=== PATIENT | male | born 1995 | race Caucasian/White ===

== ENCOUNTER 2019-06-18 17:12 | Emergency (ER) | payer BC, MEDICAID, SELFPAY ==
[~2019-06-18] VITALS: Ht 182.9 cm; Wt 86.3 kg
[2019-06-18 17:26] VITALS: BP 136/93
[2019-06-18 17:40] LABS: BASOPHILS % (AUTO) 0.3 % (0-1); EOSINOPHILS % (AUTO) 0.2 % (0-6); HEMATOCRIT 48.9 % (42.0-52.0); HEMOGLOBIN 16.6 g/dl (14.0-17.9); LYMPHOCYTES % (AUTO) 18.8 % (21-51); MEAN CORPUSCULAR HEMOGLOBIN 29.8 PG (27.0-31.0); MEAN CORPUSCULAR HGB CONC 33.8 g/dL (33.0-36.5); MEAN PLATELET VOLUME 6.4 FL (7.4-10.4); MONOCYTES # (AUTO) 0.8 X10'3 (0-0.9); MONOCYTES % (AUTO) 7.7 % (2-12); NEUTROPHILS # (AUTO) 7.7 X10'3 (1.8-7.7); PLATELET COUNT 287 X10'3 (140-440); RED BLOOD COUNT 5.56 X10'6 (4.70-6.10); RED CELL DISTRIBUTION WIDTH 13.6 % (11.5-14.5); WHITE BLOOD COUNT 10.5 X10'3 (4.5-11.0)
[2019-06-18 17:55] LABS: ALANINE AMINOTRANSFERASE 37 U/L (12-78); ALBUMIN 4.3 G/DL (3.4-5.0); ALBUMIN/GLOBULIN RATIO 1.2 (1.1-1.5); ALKALINE PHOSPHATASE 55 IU/L (46-116); ANION GAP 10 (8-16); ASPARTATE AMINO TRANSFERASE 24 U/L (10-37); BILIRUBIN,TOTAL 1.4 MG/DL (0.1-1.0); BLOOD UREA NITROGEN 14 MG/DL (7-18); CALCIUM 9.1 MG/DL (8.5-10.1); CHLORIDE 104 MMOL/L (99-107); CREATININE 1.55 MG/DL (0.60-1.10); GLUCOSE 104 MG/DL (70-104); SODIUM 143 MMOL/L (135-145); TOTAL CARBON DIOXIDE 28.7 MMOL/L (24-32); eGFR 56 ML/MIN
[2019-06-18 18:04] LABS: ETHANOL < 0.010 GM/DL (0.0-0.010)
--- NOTE | 2019-06-18 18:56 | NUR ---
Pt belongings documented and placed in ambulance bay lockers.
[2019-06-18 19:10] LABS: URINE AMPHETAMINE SCREEN NEGATIVE (Neg); URINE BARBITUATE SCREEN NEGATIVE (Neg); URINE BENZODIAZEPINES SCREEN NEGATIVE (Neg); URINE CANNABINOID SCREEN NEGATIVE (Neg); URINE COCAINE SCREEN NEGATIVE (Neg); URINE METHADONE SCREEN NEGATIVE (Neg); URINE OPIATE SCREEN NEGATIVE (Neg); URINE PHENCYCLIDINE SCREEN NEGATIVE (Neg)
--- NOTE | 2019-06-18 19:15 | NUR ---
Dr Gavin evaluating patient.
== END 2019-06-18 20:05 | disposition home or self-care (01) ==
LOC: ER 17:13
DX: F32.9 Major depressive disorder, single episode, unspecified (principal); Z98.890 Other specified postprocedural states; Z88.2 Allergy status to sulfonamides; Z59.0 Homelessness
CPT/HCPCS: 36415; 80053; 80305; 80320; 84443; 85025; 99284

== ENCOUNTER 2019-12-09 20:49 | Emergency (ER) | payer MEDICAID, OTHER ==
[~2019-12-09] VITALS: Ht 182.9 cm; Wt 80.0 kg
--- NOTE | 2019-12-09 20:56 | NUR ---
pt moved to rm 17 after triage. Pts mother is Kinza Wright and can be reached at [phone] - info was provided by SO
[2019-12-09 21:42] LABS: BASOPHILS % (AUTO) 0.4 % (0-1); EOSINOPHILS # (AUTO) 0.2 X10'3 (0-0.9); EOSINOPHILS % (AUTO) 2.1 % (0-6); HEMATOCRIT 45.4 % (42.0-52.0); HEMOGLOBIN 15.6 g/dl (14.0-17.9); LYMPHOCYTES # (AUTO) 1.9 X10'3 (1.1-4.8); LYMPHOCYTES % (AUTO) 17.2 % (21-51); MEAN CORPUSCULAR HEMOGLOBIN 29.7 PG (27.0-31.0); MEAN CORPUSCULAR HGB CONC 34.4 g/dL (33.0-36.5); MEAN CORPUSCULAR VOLUME 86.4 FL (78-98); MONOCYTES # (AUTO) 0.8 X10'3 (0-0.9); MONOCYTES % (AUTO) 7.5 % (2-12); NEUTROPHILS # (AUTO) 8.1 X10'3 (1.8-7.7); NEUTROPHILS % (AUTO) 72.8 % (42-75); PLATELET COUNT 267 X10'3 (140-440); RED BLOOD COUNT 5.26 X10'6 (4.70-6.10); RED CELL DISTRIBUTION WIDTH 13.3 % (11.5-14.5); WHITE BLOOD COUNT 11.1 X10'3 (4.5-11.0)
[2019-12-09 21:53] LABS: ALANINE AMINOTRANSFERASE 71 U/L (12-78); ALBUMIN 3.9 G/DL (3.4-5.0); ALBUMIN/GLOBULIN RATIO 1.2 (1.1-1.5); ALKALINE PHOSPHATASE 59 IU/L (46-116); ANION GAP 7 (8-16); ASPARTATE AMINO TRANSFERASE 29 U/L (10-37); BILIRUBIN,TOTAL 0.4 MG/DL (0.1-1.0); BLOOD UREA NITROGEN 18 MG/DL (7-18); CALCIUM 8.9 MG/DL (8.5-10.1); CHLORIDE 108 MMOL/L (99-107); CREATININE 1.29 MG/DL (0.60-1.10); GLUCOSE 114 MG/DL (70-104); POTASSIUM 3.9 MMOL/L (3.5-5.1); SODIUM 141 MMOL/L (135-145); TOTAL CARBON DIOXIDE 26.1 MMOL/L (24-32); TOTAL PROTEIN 7.1 G/DL (6.4-8.2); eGFR 69 ML/MIN
[2019-12-09 22:00] LABS: ETHANOL < 0.010 GM/DL (0.0-0.010)
[2019-12-09] MEDS ORDERED: OLAN5TAB3 PO (22:04)
[2019-12-09 22:39] LABS: URINE AMPHETAMINE SCREEN NEGATIVE (Neg); URINE BARBITUATE SCREEN NEGATIVE (Neg); URINE BENZODIAZEPINES SCREEN NEGATIVE (Neg); URINE CANNABINOID SCREEN NEGATIVE (Neg); URINE COCAINE SCREEN NEGATIVE (Neg); URINE METHADONE SCREEN NEGATIVE (Neg); URINE OPIATE SCREEN NEGATIVE (Neg); URINE PHENCYCLIDINE SCREEN NEGATIVE (Neg)
--- NOTE | 2019-12-09 23:19 | NUR ---
mom matthew was contacted. His mom volunteered information that the patient has had a longstanding aguirre with mental health. She states that she is afraid for her life while the patient stays at her house and that he is unpredictable. His mom reports that the patient was discharged from the a week ago and that he was kept in the behavioral health unit via observation prior to discharge. She states that the patient is on 5 mg of Zyprexa nightly and recently stayed at [facility] for 5 days. Mom is more concerned of potential homicidal ideation versus suicidal. She states that he hears voices and cannot speak clearly without having delusions or becoming agitated.
--- NOTE | 2019-12-10 00:39 | NUR ---
PT transferred to overflow at 0030 in stable condition. Pt given warm blanket and water pitcher.
--- NOTE | 2019-12-10 01:50 | NUR ---
PT IS ASLEEP ON L SIDE, RR 14 EVEN, UNLABORED.
--- NOTE | 2019-12-10 03:30 | NUR ---
pt asleep on back, RR WNL, no signs or symptoms of distress at this time.
--- NOTE | 2019-12-10 05:56 | NUR ---
PACKET FAXED TO [facility]
--- NOTE | 2019-12-10 08:29 | NUR ---
Attempted 1:1 with patient. Patient closed his eyes and refused to talk.
--- NOTE | 2019-12-10 09:46 | NUR ---
Breaking primary RN, pt is supine in bed, regular breathing present, eyes closed, appears to be asleep, will continue to observe
--- NOTE | 2019-12-10 10:46 | NUR ---
Pt. continues to sleep supine in bed. Unwilling to talk to primary nurse.
--- NOTE | 2019-12-10 11:15 | NUR ---
[facility] here to evaluate patient.
--- NOTE | 2019-12-10 12:26 | NUR ---
Pt. laying in bed, eyes open, resting. No S/S of distress.
--- NOTE | 2019-12-10 13:12 | NUR ---
Breaking Primary RN, Pt. C/O Headache, will request pain medication for pt.
[2019-12-10] MEDS ORDERED: acetaminophen 325mg tablet PO ONE (13:20)
--- NOTE | 2019-12-10 14:44 | NUR ---
Patient became agitated and started demanding the name of an immigration [facility] Pt. then started saying that he needed a brain scan. When he was told that he did not meet criteria for brain scan, he stated that he was going to leave. Pt. became increasingly agitated and security was called for show of force, and patient decided to go back to his bed. Patient is suffering from paranoia AEB patient believing that both hospitals are holding information from him. Patient stating that he may have cancer, Parkinsons, etc.
[2019-12-10 14:53] LABS: CLARITY,URINE SLIGHTLY CLOUDY (Clear); COLOR,URINE STRAW (Yellow); GLUCOSE, URINE NEGATIVE (Neg); KETONES,URINE NEGATIVE (Neg); LEUKOCYTE ESTERASE ,URINE TRACE (Neg); NITRITES, URINE NEGATIVE (Neg); OCCULT BLOOD,URINE NEGATIVE (Neg); PROTEIN,URINE NEGATIVE (Neg); UROBILINOGEN,URINE 0.2 E.U/dL (0.2-1.0)
[2019-12-10 14:54] LABS: UA COLLECTION TYPE CLN CATCH MIDSTREAM
[2019-12-10 15:00] LABS: AMORPHOUS URATES 1+; BACTERIA,URINE FEW /HPF (Neg); RBC,URINE 0-2 /HPF (0-2); SQUAMOUS EPITHELIAL CELL,UR NONE SEEN /LPF (FEW); WBC CLUMPS,URINE FEW /HPF (NEGATIVE)
[2019-12-10] MEDS ORDERED: OLANZapine 2.5MG tablet PO SCH (15:40)
--- NOTE | 2019-12-10 16:07 | NUR ---
Obtained order for Zyprexa 10 mg now, 5 mg b.i.d. to control paranoia and A/H. Patient sleeping at this time. [facility] and have attempted to return call x 2.
--- NOTE | 2019-12-10 17:19 | NUR ---
Father visiting at bedside.
--- NOTE | 2019-12-10 17:40 | NUR ---
Pt's father brought the patient some clothing and left for the day. Patient tearful after visit.
--- NOTE | 2019-12-10 18:58 | NUR ---
This patient is low fowlers position in bed. He is awake and well oriented. The patient is well groomed and is wearing green scrubs. The patient speaks in a very soft voice. He makes direct eye contact. Patient tells this tag writer he was diagnosed with Schizophrenia a few weeks ago. 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 He was discharged after around a month in training. Patient is cooperative with staff. He states he is depressed and hearing confussing voices. He denies S/I or H/I. The patient lives with his mother and stepfather in [place]. The patient is reassured that he is in a safe place. The patient exhibits understanding.
--- NOTE | 2019-12-10 19:32 | NUR ---
This check writer salesperson [facility] The [facility] is being considered for [facility]ittion to that facility.
--- NOTE | 2019-12-10 19:40 | NUR ---
Patient is sleeping quietly on his left side.
--- NOTE | 2019-12-10 19:54 | NUR ---
[facility] called. This patient will be accepted at [facility] in [place]. Transport will be here between [id number] hours.
[2019-12-10] MEDS ORDERED: OLANZAPINE 5 MG TABLET PO SCH ×2 (21:00)
--- NOTE | 2019-12-10 21:47 | NUR ---
[facility] transport is here, the patient is changing into his street clothing. Patient is ambulatory. Patient will be transported to [facility] in [place].
[2019-12-10 21:50] VITALS: BP 129/75
== END 2019-12-10 21:54 ==
LOC: ER 20:50
DX: R45.1 Restlessness and agitation (principal); R45.6 Violent behavior; F20.9 Schizophrenia, unspecified; R51 Headache; Z98.890 Other specified postprocedural states; Z88.2 Allergy status to sulfonamides; Z79.899 Other long term (current) drug therapy
CPT/HCPCS: 36415; 80053; 80305; 80320; 81001; 84443; 85025; 87088; 99285